=== PATIENT | female | born 1940 | race Two or more races ===

== ENCOUNTER 2020-09-09 09:54 | Emergency (ER) | payer OTHER ==
[~2020-09-09] VITALS: Ht 162.6 cm; Wt 79.4 kg
--- NOTE | 2020-09-09 10:02 | NUR ---
TO ER BED 9 AWAITING MD BUSH
--- NOTE | 2020-09-09 10:03 | NUR ---
ASSUME PATIENT CARE, KIRSTY FROM HOME TO ER BED 9 C/O LOWER BACK AND RIGHT BEHIND THE KNEE PAIN X 2 DAYS. STATES SHE IS UNABLE TO WALK FOR THE PAST 2 DAYS BECAUSE OF PAIN, DENIES FALL OR ANY TRAUMA. STABLE VITALS. DENIES SOB. AWAITING MD BUSH.
--- NOTE | 2020-09-09 10:15 | NUR ---
DR SAAVEDRA AT BEDSIDE FOR EVAL.
[2020-09-09] MEDS ORDERED: HYDROCODONE/APAP 5/325MG TABLET ONE (10:37)
[2020-09-09] MEDS ORDERED: HYDROCODONE/APAP 5/325MG TABLET PO ONE (11:00)
[2020-09-09] MEDS ORDERED: LISI-768 PO (11:17)
[2020-09-09] MEDS ORDERED: OMEP40CA13 PO (11:17)
--- NOTE | 2020-09-09 11:31 | NUR ---
ROAD TESTED USING A WALKER. ABLE TO AMBULATE.
--- NOTE | 2020-09-09 11:41 | NUR ---
CALLED [facility] FOR TRANSPORT TO [place]. ETA [phone].
[2020-09-09] MEDS ORDERED: PRED20TA PO (11:59)
[2020-09-09] MEDS ORDERED: HYDR-4275 PO (11:59)
[2020-09-09] MEDS ORDERED: predniSONE 20 MG TABLET ONE (12:00)
[2020-09-09] MEDS ORDERED: predniSONE 20 MG TABLET PO ONE (12:00)
--- NOTE | 2020-09-09 13:20 | NUR ---
[facility] AT BEDSIDE FOR PT TRANSPORT TO HER PLACE OF [place]. PT IS IN STABLE CONDITION. AMBULATORY WITH AN AIDE OF A WALKER.
[2020-09-09 13:22] VITALS: BP 169/89
== END 2020-09-09 13:22 | disposition home or self-care (01) ==
LOC: ER 09:57
DX: M54.41 Lumbago with sciatica, right side (principal); I10 Essential (primary) hypertension; Z60.2 Problems related to living alone; Z79.899 Other long term (current) drug therapy
CPT/HCPCS: 99283; J7512